=== PATIENT | male | born 1980 | race Caucasian/White ===

== ENCOUNTER 2023-02-15 16:45 | Emergency (ER) | payer MEDICAID ==
[~2023-02-15] VITALS: Ht 170.2 cm; Wt 78.0 kg
[2023-02-15] MEDS ORDERED: IBUPROFEN 600MG TABLET PO ONE (17:00)
[2023-02-15 17:30] LABS: BASOPHILS % 0.2 % (0.0-2.0); EOSINOPHILS % 0.2 % (0.0-5.0); HEMATOCRIT. 34.6 % (42.0-52.0); HEMOGLOBIN. 11.6 g/dL (14.0-18.0); LYMPHOCYTES % 10.8 % (20.0-50.0); MEAN CORPUSCULAR HEMOGLOBIN 29.3 pg (28.0-32.0); MEAN CORPUSCULAR VOLUME 87.2 fL (80.0-94.0); MONOCYTES % 10.7 % (2.0-8.0); NEUTROPHILS % 78.1 % (40.0-76.0); PLATELET 199 x1000/uL (130-400); RED BLOOD CELL COUNT 3.96 mill/uL (4.7-6.1); RED CELL DISTRIBUTION WIDTH 15.9 % (11.6-14.6)
[2023-02-15 17:37] LABS: PROTHROMBIN TIME 10.9 sec (9.6-11.0)
[2023-02-15 17:38] LABS: CHLORIDE 101 mEq/L (98-107)
[2023-02-15 17:43] LABS: CLARITY URINE CLEAR (CLEAR); COLOR URINE YELLOW (YELLOW); KETONES URINE TRACE (NEGATIVE); LEUKOCYTE ESTERASE URINE NEGATIVE (NEGATIVE); NITRITE URINE NEGATIVE (NEGATIVE); OCCULT BLOOD URINE NEGATIVE (NEGATIVE); PROTEIN URINE 2+ (NEGATIVE); SPECIFIC GRAVITY URINE 1.024 (1.005-1.030)
[2023-02-15] MEDS ORDERED: VANCOMYCIN 1G PREMIX 200 ML IV SCH (20:00)
[2023-02-15 21:07] VITALS: BP 130/80
[2023-02-15] MEDS ORDERED: IOHEXOL-350 100 ML BOTTLE ONE (23:22)
== END 2023-02-15 21:22 | disposition left against medical advice (07) ==
LOC: ER 16:45
DX: M79.89 Other specified soft tissue disorders (principal); R06.02 Shortness of breath
CPT/HCPCS: 36415; 71275; 74174; 80053; 81003; 83605; 83880; 84484; 85025; 85610; 85651; 87040; 93970; 96365; 99285; J3370; Q9967; Z7610